=== PATIENT | female | born 1975 ===

== ENCOUNTER 2025-05-01 09:59 | Outpatient (CLI) | payer MEDICAID | END 2025-05-01 17:00 | disposition home or self-care (01) | LOC: Rad HDHVI 09:59 | PROVIDERS: ATTEND Internal Medicine Cardiovascular Disease | DX: R42 Dizziness and giddiness (principal) | CPT/HCPCS: 93306 ==

== ENCOUNTER 2025-05-14 08:24 | Outpatient (CLI) | payer MEDICAID ==
[~2025-05-14] VITALS: Ht 172.7 cm; Wt 117.9 kg
== END 2025-05-14 17:00 | disposition home or self-care (01) ==
LOC: Rad HDHVI 08:24
PROVIDERS: ATTEND Internal Medicine Cardiovascular Disease
DX: I49.3 Ventricular premature depolarization (principal); R00.0 Tachycardia, unspecified; I10 Essential (primary) hypertension; E78.00 Pure hypercholesterolemia, unspecified; R42 Dizziness and giddiness
CPT/HCPCS: 78452; 93017; A9500; 96374